=== PATIENT | female | born 1960 | race African-American/Black ===

== ENCOUNTER 2016-07-20 14:42 | Emergency (ER) | payer SELFPAY ==
[~2016-07-20] VITALS: Ht 175.3 cm; Wt 87.1 kg
[2016-07-20 14:52] VITALS: BP 135/75
[2016-07-20] MEDS ORDERED: TRAM-29 PO (15:19)
[2016-07-20] MEDS ORDERED: ERYT1OIN6 OD (15:19)
[2016-07-20] MEDS ORDERED: METH-37 PO (15:19)
--- NOTE | 2016-07-20 15:20 | PHYS DOC ---
Past Medical History Past Medical History: Hypertension Past Surgical History: Smoking: Less than 1pk/day Alcohol Use: Rarely Drug Use: None Adult General Chief Complaint Chief Complaint: BACK PAIN OR INJURY [facility] HPI Patient is a 55 year old female who presents with back pain and right lower eyelid swelling. Patient reports pain in the mid to lower back that has been ongoing for a few months. The pain occasionally radiates to the left leg. She denies any injury to her back. She's been taking Tylenol, Aleve, and Advil at home without relief of her pain. She has a history of problems with her back and received a series of steroid injections previously. She has not been seen recently for her back pain. She denies incontinence or saddle anesthesia. She has not had any weakness or numbness. No nausea, vomiting, abdominal pain, or urinary symptoms. Patient also reports that her right lower eyelid has been swollen for approximately one week. She began having drainage yesterday. She reports that the eye is itchy. She denies any injury or contact lens use. She does not have any changes in her vision. She does not have a PCP. Review of Systems Review of Systems Constitutional: Denies fever or chills. [] Eyes: Denies change in visual acuity, redness, or eye pain. Reports right lower eyelid swelling. HENT: Denies ear pain, nasal congestion or sore throat. [] Respiratory: Denies cough or shortness of breath. [] Cardiovascular: Denies chest pain, palpitations or edema. [] GI: Denies abdominal pain, nausea, vomiting. [] : Denies dysuria, hematuria or urinary frequency. [] Musculoskeletal: Denies joint pain. Reports mid to low back pain. Integument: Denies rash or skin lesions. [] Neurologic: Denies headache, focal weakness or sensory changes. Denies incontinence or saddle anesthesia. Endocrine: Denies polyuria or polydipsia. [] Psych: Denies anxiety or depression. [] All systems reviewed and negative unless otherwise stated in the HPI. Physical Exam Physical Exam Constitutional: Well developed, well nourished, no acute distress, non-toxic appearance. [] HENT: Normocephalic, atraumatic, bilateral external ears normal, oropharynx moist, no oral exudates, nose normal. [] Eyes: PERRLA, EOMI, conjunctiva normal, no discharge. Right lower eyelid external hordeolum. Neck: Normal range of motion, no tenderness, supple, no stridor. [] Cardiovascular: Heart rate regular rhythm, no murmur [] Lungs & Thorax: Bilateral breath sounds clear to auscultation without wheezes, rales, or rhonchi. Abdomen: Bowel sounds normal, soft, no tenderness, no masses, no pulsatile masses. [] Skin: Warm, dry, no erythema, no rash. [] Back: Midline thoracic and lumbar tenderness, no CVA tenderness. [] Extremities: No tenderness, no cyanosis, no clubbing, ROM intact, no edema. 2+ DP pulses bilaterally. Light touch sensation intact distally and equal bilaterally. Neurologic: Alert and oriented X 3, normal motor function, normal sensory function, no focal deficits noted. [] Psychologic: Affect normal, judgement normal, mood normal. [] Current Patient Data Vital Signs Vital Signs Date Time Temp Pulse Resp B/P Pulse Ox O2 Delivery O2 Flow Rate FiO2 07/20/16 14:52 98.1 67 16 99 Room Air 98.1 EKG EKG [] Radiology/Procedures Radiology/Procedures [] Course & Med Decision Making Course & Med Decision Making Pertinent Labs and Imaging studies reviewed. (See chart for details) [] Dragon Disclaimer Dragon Disclaimer This electronic medical record was generated, in whole or in part, using a voice recognition dictation system. Departure Departure Impression: Primary Impression: Back pain Additional Impression: Hordeolum external Disposition: 01 HOME, SELF-CARE Condition: STABLE Patient Instructions: Back Pain, Adult, Ayst-yb-Cyti, Sty Additional Instructions: Please take the prescribed medications as prescribed. Do not drive or operate heavy machinery while taking pain medication or muscle relaxers. Please use the prescribed eye ointment for 1 week, even if your eye is improving. Apply warm compresses to your eye. Please follow up with a primary care provider if your back pain continues. Return to the emergency department if you have loss of bowel or bladder control , numbness between your legs or any new or concerning symptoms. Scripts Erythromycin Base (Erythromycin)3.5 Gm Oint...g.1 Marjorie OD BID 7 Days Prov:NIKOLAS ORTIZ 07/20/16 Methocarbamol (Robaxin)500 Mg [id number] Mg PO QID #20 TAB Prov:NIKOLAS ORTIZ 07/20/16 Tramadol Hcl (Ultram)50 Mg [id number] Mg PO Q6H PRN PAIN #20 TAB Prov:NIKOLAS ORTIZ 07/20/16 Problem Qualifiers Primary Impression: Back pain Back pain location: back pain in unspecified location Chronicity: chronic Back pain laterality: midline Qualified Code: M54.9 - Dorsalgia, unspecified Additional Impression: Hordeolum external Laterality: right Eyelid: lower Qualified Code: H00.012 - Hordeolum externum right lower eyelid NIKOLAS ORTIZ Jul 20, 2016 15:20
== END 2016-07-20 15:26 | disposition home or self-care (01) ==
LOC: ER 14:42
DX: M54.9 Dorsalgia, unspecified (principal); H00.012 Hordeolum externum right lower eyelid
CPT/HCPCS: 99283

== ENCOUNTER 2016-12-09 10:21 | Emergency (ER) | payer SELFPAY ==
[~2016-12-09] VITALS: Ht 175.3 cm; Wt 85.3 kg
[~2016-12-09 10:21] MED LIST: ERYT1OIN6 OD; METH-37 PO; TRAM-48 PO
[2016-12-09] MEDS ORDERED: IV NORMAL SALINE 1000ML BAG 1,000 ML IV SCH (10:53)
[2016-12-09] MEDS ORDERED: fentaNYL PF VIAL 100 MCG/2 ML VIAL IV PRN (11:00)
[2016-12-09] MEDS ORDERED: FAMOTIDINE 20 MG/2 ML VIAL IVP ONE (11:00)
[2016-12-09] MEDS ORDERED: ONDANSETRON PF 4 MG/2 ML VIAL. IV ONE (11:00)
[2016-12-09 11:54] LABS: HEMATOCRIT 43.5 % (36.0-47.0); HEMOGLOBIN 14.8 g/dL (12.0-15.5); MEAN CORPUSCULAR HEMOGLOBIN 32 pg (25-35); MEAN CORPUSCULAR HGB CONC 34 g/dL (31-37); MEAN CORPUSCULAR VOLUME 94 fL (79-100); RED BLOOD COUNT 4.63 x10^6/uL (3.50-5.40); RED CELL DISTRIBUTION WIDTH 15.2 % (11.5-14.5); WHITE BLOOD COUNT 4.8 x10^3/uL (4.0-11.0)
[2016-12-09 11:55] LABS: BASO % 0 % (0-3); EOS % 2 % (0-3); LYMPH # 1.7 x10^3/uL (1.0-4.8); LYMPH % 35 % (24-48); MONO % 10 % (0-9); NEUT % 53 % (31-73); PLATELET COUNT 217 x10^3/uL (140-400)
--- NOTE | 2016-12-09 11:55 | RAD ---
Right upper quadrant abdominal ultrasound, 12/09/2016: History: Epigastric pain for one week The gallbladder is at the upper limits of normal in size. There is no sonographic evidence of cholelithiasis. The gallbladder saleh are not thickened. No bile duct dilatation is seen. The visualized portions of the liver, pancreas and right kidney are unremarkable. IMPRESSION: No significant abnormality is detected.
[2016-12-09 11:58] LABS: CREATININE 0.7 mg/dL (0.6-1.0); GFR 105.1; POTASSIUM 4.3 mmol/L (3.5-5.1)
[2016-12-09 12:01] LABS: ALBUMIN 3.8 g/dL (3.4-5.0); ALBUMIN/GLOBULIN RATIO 0.8 (1.0-1.7); BILIRUBIN,URINE SMALL (NEG); CALCIUM 9.7 mg/dL (8.5-10.1); GLUCOSE,URINE NEGATIVE (NEG); NITRITE,URINE NEGATIVE (NEG); PROTEIN,URINE NEGATIVE (NEG-TRACE); RBC,URINE OCC /HPF (0-2); TOTAL BILIRUBIN 0.4 mg/dL (0.2-1.0); TOTAL PROTEIN 8.4 g/dL (6.4-8.2); UROBILINOGEN,URINE 0.2 mg/dL (0.2 mg/dL)
[2016-12-09 12:02] LABS: BACTERIA,URINE MODERATE /HPF (0-FEW); SQUAMOUS EPITHELIAL CELL,UR MANY /LPF
--- NOTE | 2016-12-09 12:39 | PHYS DOC ---
Past Medical History Past Medical History: No Pertinent History Past Surgical History: Other Additional Past Surgical Histo: EXPLORATORY BACK SURGERY TO FIND BULLET AT AGE 8 Alcohol Use: Heavy Additional Information: PT STATES SHE DRINKS 1 MIXED DRINK AND 1 BEER DAILY Drug Use: None Adult General Chief Complaint Chief Complaint: ABDOMINAL PAIN HPI HPI Patient is a 56 year old female who presents with complaint of abdominal pain. Patient states that her symptoms have been present for the past week. Patient states that she is having dull upper abdominal pain which he rates as 8 out of 10. Patient denies radiation of pain. Patient states that she thought it may be due to constipation. Patient states that she took a laxative which helped improve her bowel movements, however she states that she still has the pain. Patient states that the pain has been constant but does display waxing and waning qualities. Patient denies any abdominal surgeries. Patient has not had any associated fever, vomiting, or known dysuria. Patient also notes that she has noticed a rash. This has presented as bumps which have been present on her anterior chest, neck, and back. Patient states that the rash has been itchy. Patient denies any known exposures that could have led to her symptoms. Patient states this rash is been present over the past 3-4 days. Review of Systems Review of Systems Constitutional: Denies fever or chills [] Eyes: Denies change in visual acuity, redness, or eye pain [] HENT: Denies nasal congestion or sore throat [] Respiratory: Denies cough or shortness of breath [] Cardiovascular: Denies chest pain or edema [] GI: Abdominal pain, denies nausea, vomiting, bloody stools or diarrhea [] : Denies dysuria or hematuria [] Musculoskeletal: Denies back pain or joint pain [] Integument: Denies rash or skin lesions [] Neurologic: Denies headache, focal weakness or sensory changes [] Current Medications Current Medications Current Medications Medications (Trade) Dose Ordered Sig/Rahul Start Time Stop Time Status Last Admin Dose Admin Famotidine (Pepcid) 20 mg 1X ONCE 12/09/16 11:00 12/09/16 11:08 DC 12/09/16 11:46 20 MG Fentanyl Citrate (Fentanyl 2ml Vial) 50 mcg PRN Q15MIN PRN 12/09/16 11:00 12/09/16 13:28 DC Ondansetron HCl (Zofran) 4 mg 1X ONCE 12/09/16 11:00 12/09/16 11:08 DC 12/09/16 11:45 4 MG Sodium Chloride 1,000 ml @ 1,000 mls/hr Q1H 12/09/16 10:53 12/09/16 11:52 DC 12/09/16 11:39 1,000 MLS/HR Allergies Allergies Allergies Coded Allergies Type Severity Reaction Last Updated Verified No Known Drug Allergies 12/09/16 No Physical Exam Physical Exam Constitutional: Alert, afebrile, no acute distress. [] HENT: Normocephalic, atraumatic, bilateral external ears normal, oropharynx moist, no oral exudates, nose normal. [] Eyes: PERRLA, EOMI, conjunctiva normal, no discharge. [] Neck: Normal range of motion, no tenderness, supple, no stridor. [] Cardiovascular:Heart rate regular rhythm, no murmur [] Lungs & Thorax: Bilateral breath sounds clear to auscultation [] Abdomen: Bowel sounds normal, soft, mild epigastric tenderness to palpation, no guarding or rebound tenderness, negative Mendoza sign, no masses, no pulsatile masses. [] Skin: Warm, dry, no erythema, maculopapular rash present along the anterior chest, right side of neck, and upper back with mild excoriation. [] Back: No tenderness, no CVA tenderness. [] Extremities: No tenderness, no cyanosis, no clubbing, ROM intact, no edema. [] Neurologic: Alert and oriented X 3, normal motor function, normal sensory function, no focal deficits noted. [] Current Patient Data Vital Signs Vital Signs Date Time Temp Pulse Resp B/P (MAP) Pulse Ox O2 Delivery O2 Flow Rate FiO2 12/09/16 12:40 60 19 143/90 (107) 98 12/09/16 11:40 Room Air 12/09/16 10:40 98.0 98.0 Lab Values Laboratory Tests Test 12/09/16 11:30 White Blood Count 4.8 x10^3/uL (4.0-11.0) Red Blood Count 4.63 x10^6/uL (3.50-5.40) Hemoglobin 14.8 g/dL (12.0-15.5) Hematocrit 43.5 % (36.0-47.0) Mean Corpuscular Volume 94 fL (79-100) Mean Corpuscular Hemoglobin 32 pg (25-35) Mean Corpuscular Hemoglobin Concent 34 g/dL (31-37) Red Cell Distribution Width 15.2 % (11.5-14.5) H Platelet Count 217 x10^3/uL (140-400) Neutrophils (%) (Auto) 53 % (31-73) Lymphocytes (%) (Auto) 35 % (24-48) Monocytes (%) (Auto) 10 % (0-9) H Eosinophils (%) (Auto) 2 % (0-3) Basophils (%) (Auto) 0 % (0-3) Neutrophils # (Auto) 2.6 x10^3uL (1.8-7.7) Lymphocytes # (Auto) 1.7 x10^3/uL (1.0-4.8) Monocytes # (Auto) 0.5 x10^3/uL (0.0-1.1) Eosinophils # (Auto) 0.1 x10^3/uL (0.0-0.7) Basophils # (Auto) 0.0 x10^3/uL (0.0-0.2) Urine Collection Type Void Urine Color Viviane Urine Clarity Clear Urine pH 5.0 Urine Specific [place] 1.025 Urine Protein Negative mg/dL (NEG-TRACE) Urine Glucose (UA) Negative mg/dL (NEG) Urine Ketones (Stick) Negative mg/dL (NEG) Urine Blood Negative (NEG) Urine Nitrite Negative (NEG) Urine Reducing Substances % (NEG) Urine Bilirubin Small (NEG) Urine Urobilinogen Dipstick 0.2 mg/dL (0.2 mg/dL) Urine Leukocyte Esterase Moderate (NEG) Urine RBC Occ /HPF (0-2) Urine WBC 11-20 /HPF (0-4) Urine Squamous Epithelial Cells Many /LPF Urine Bacteria Moderate /HPF (0-FEW) Urine Mucus Marked /LPF Sodium Level 140 mmol/L (136-145) Potassium Level 4.3 mmol/L (3.5-5.1) Chloride Level 102 mmol/L (98-107) Carbon Dioxide Level 31 mmol/L (21-32) Anion Gap 7 (6-14) Blood Urea Nitrogen 11 mg/dL (7-20) Creatinine 0.7 mg/dL (0.6-1.0) Estimated GFR (Cockcroft-Gault) 105.1 BUN/Creatinine Ratio 16 (6-20) Glucose Level 102 mg/dL (70-99) H Calcium Level 9.7 mg/dL (8.5-10.1) Total Bilirubin 0.4 mg/dL (0.2-1.0) Aspartate Amino Transferase (AST) 78 U/L (15-37) H Alanine Aminotransferase (ALT) 39 U/L (14-59) Alkaline Phosphatase 75 U/L (46-116) Total Protein 8.4 g/dL (6.4-8.2) H Albumin 3.8 g/dL (3.4-5.0) Albumin/Globulin Ratio 0.8 (1.0-1.7) L Lipase 144 U/L (73-393) Laboratory Tests 12/09/16 11:30 Laboratory Tests 12/09/16 11:30 EKG EKG Interpreted by me: Heart rate 55, sinus rhythm, normal intervals, normal axis, nonspecific T-wave inversion in lead 3, no acute ST elevations or depressions [] Radiology/Procedures Radiology/Procedures [facility] [address] [place] [address] IMAGING REPORT Signed PATIENT: DORIS VALLE ACCOUNT: [id number] : 1960 LOCATION: ER AGE: 56 SEX: F EXAM STATUS: REG ER ORD. PHYSICIAN: JAIME GUTIERREZ MD REASON: epigastric pain for one week PROCEDURE: ABDOMEN LTD Right upper quadrant abdominal ultrasound, 12/09/2016: History: Epigastric pain for one week The gallbladder is at the upper limits of normal in size. There is no sonographic evidence of cholelithiasis. The gallbladder saleh are not thickened. No bile duct dilatation is seen. The visualized portions of the liver, pancreas and right kidney are unremarkable. IMPRESSION: No significant abnormality is detected. DICTATED and SIGNED BY: ISABEL SON MD DATE: 12/09/16 [id number] CC: JAIME GUTIERREZ MD; NO PCP ~ [] Course & Med Decision Making Course & Med Decision Making Pertinent Labs and Imaging studies reviewed. (See chart for details) Patient was given IV fluids, fentanyl, and Zofran. On reevaluation, patient's symptoms have improved. Patient's ultrasound was negative for cholelithiasis. Patient's symptoms appear consistent with likely gastritis. Patient was also found have evidence urinary tract infection. 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 Recommended use of hydrocortisone cream for the patient's skin rash as this appears to be allergic in origin. Advise follow-up with primary doctor in the next 5 days if symptoms are not improving and return to emergency department for any worsening symptoms. Patient was understanding and in agreement with treatment plan. Dragon Disclaimer Dragon Disclaimer This electronic medical record was generated, in whole or in part, using a voice recognition dictation system. Departure Departure Impression: Primary Impression: Abdominal pain Additional Impressions: Urinary tract infection Skin rash Disposition: HOME, SELF-CARE Condition: IMPROVED Referrals: NO PCP (PCP) Patient Instructions: Abdominal Pain (Nonspecific), Rash, Urinary Tract Infection Additional Instructions: Follow-up with your primary doctor in the next 5 days if symptoms are not improving. You may use hydrocortisone 1% cream available [id number] as instructed on packaging for treatment of your skin rash. Return to the emergency department for any worsening symptoms. Scripts Cephalexin (KEFLEX) 500 Mg Capsule 1 CAP PO TID, #21 CAP Prov: JAIME GUTIERREZ MD 12/09/16 Famotidine (PEPCID) 20 Mg Tablet 20 MG PO BID, #30 TAB Prov: JAIME GUTIERREZ MD 12/09/16 Hydrocodone/Apap 5-325 (NORCO 5-325 TABLET) 1 Each Tablet 1 TAB PO Q4-6HRS Y for PAIN, #20 TAB 0 Refills Prov: JAIME GUTIERREZ MD 12/09/16 Problem Qualifiers Primary Impression: Abdominal pain Abdominal location: epigastric Qualified Codes: R10.13 - Epigastric pain Additional Impressions: Urinary tract infection Urinary tract infection type: site unspecified Hematuria presence: without hematuria Qualified Codes: N39.0 - Urinary tract infection, site not specified JAIME GUTIERREZ MD Dec 09, 2016 12:39
[2016-12-09 12:40] VITALS: BP 143/90
[2016-12-09] MEDS ORDERED: FAMO-63 PO (13:05)
[2016-12-09] MEDS ORDERED: CEPH-264 PO (13:05)
[2016-12-09] MEDS ORDERED: HYDR-971 PO (13:05)
--- NOTE | 2016-12-09 13:15 | EKG ---
[facility] [address] [place] [address] Test Date: 2016-12-09 Test Time: 11:32:25 Pat Name: DORIS VALLE Department: Room: Gender: F Graduate Rn: : 1960 Requested By: JAIME GUTIERREZ Order Number: [id number] Reading MD: Swati Barrientos Measurements Intervals [place] Rate: 55 P: 44 MD: 160 QRS: 0 QRSD: 90 T: 10 QT: 412 QTc: 396 Interpretive Statements SINUS RHYTHM NORMAL ECG RI6.01 No previous ECG available for comparison Electronically Signed On 12-10-2016 19:35:31 CDT by Swati Barrientos
== END 2016-12-09 13:28 | disposition home or self-care (01) ==
LOC: ER 10:21
DX: R10.13 Epigastric pain (principal); N39.0 Urinary tract infection, site not specified; R21 Rash and other nonspecific skin eruption; F10.10 Alcohol abuse, uncomplicated
CPT/HCPCS: 36415; 76705; 80053; 81001; 83690; 85027; 87086; 93005; 96361; 96374; 96375; 99285; J2405; J7030; S0028